=== PATIENT | male | born 1990 | race African-American/Black ===

== ENCOUNTER 2016-06-21 18:18 | Emergency (ER) | payer OTHER ==
[~2016-06-21] VITALS: Ht 185.4 cm; Wt 115.7 kg
[~2016-06-21 18:18] MED LIST: IBUP80TA PO; NAPR375T2 PO; TRAZ50TA2 PO; ULTR50TA PO; ZANA2CAP PO; ZOLO50TA PO
[2016-06-21] MEDS ORDERED: IBUP80TA PO (19:56)
[2016-06-21] MEDS ORDERED: NORCOTAB PO (19:56)
[2016-06-21] MEDS ORDERED: ROBA500T PO (19:56)
[2016-06-21] MEDS ORDERED: KETOROLAC 60 MG/2 ML VIAL (J1885) IM ONE (20:00)
[2016-06-21] MEDS ORDERED: METHOCARBAMOL 500 MG TAB PO ONE (20:00)
[2016-06-21 20:07] VITALS: BP 156/93
== END 2016-06-21 20:20 | disposition home or self-care (01) ==
LOC: M ED 19:24
DX: M54.41 Lumbago with sciatica, right side (principal); S39.012A Strain of muscle, fascia and tendon of lower back, initial encounter; X50.0XXA Overexertion from strenuous movement or load, initial encounter; Y92.018 Other place in single-family (private) house as the place of occurrence of the external cause; Y93.89 Activity, other specified; Y99.8 Other external cause status; F33.9 Major depressive disorder, recurrent, unspecified; G47.33 Obstructive sleep apnea (adult) (pediatric); Z79.899 Other long term (current) drug therapy
CPT/HCPCS: 96372; 99282; J1885

== ENCOUNTER → 2016-07-18 | Outpatient (CLI) | payer OTHER ==
[~2016-07-18] MED LIST changes: +NORCOTAB PO; +ROBA500T PO
--- NOTE | 2016-07-18 14:51 | REP ---
Chest two views HISTORY: Tuberculosis Comparison: 12/15/2013 The lungs are clear. The heart is normal in size. The pulmonary vasculature is normal in appearance. The bony structure is intact. IMPRESSION: No acute disease. Signed by Jaquan Krueger MD 07/18/2016 02:42 P
== END ==
LOC: M WUC 11:17
PROVIDERS: ATTEND Surgery
DX: Z11.1 Encounter for screening for respiratory tuberculosis (principal)

== ENCOUNTER → 2018-07-09 | Outpatient (REF) | payer OTHER ==
[~2018-07-09] MED LIST changes: +HYDR-3715 PO; -NORCOTAB PO
[2018-07-09 18:24] LABS: CHLAMYDIA DNA AMPLIFICATION NEGATIVE (NEGATIVE); GC DNA AMPLIFICATION POSITIVE (NEGATIVE)
== END ==
LOC: M LAB REF 16:10
PROVIDERS: ATTEND Physician Assistant
DX: R30.0 Dysuria (principal)

== ENCOUNTER 2018-07-20 09:16 | Emergency (ER) | payer OTHER ==
[~2018-07-20] VITALS: Ht 185.4 cm; Wt 120.7 kg
[2018-07-20] MEDS ORDERED: COLA100C5 PO (09:24)
[2018-07-20] MEDS ORDERED: ONDANSETRON 4MG/2ML VIAL (J2405) IV ONE (10:45)
[2018-07-20 10:57] LABS: HEMATOCRIT 49.1 % (42.0-52.0); HEMOGLOBIN 16.2 g/dl (13.5-17.5); MEAN CORPUSCULAR HEMOGLOBIN 28.6 pg (27.0-33.0); MEAN CORPUSCULAR VOLUME 86.7 fl (80.0-96.0); PLATELET COUNT, AUTOMATED 233 10^3/uL (150-450); RED BLOOD COUNT 5.66 10^6/uL (4.30-6.10); WHITE BLOOD COUNT 7.6 10^3/uL (4.0-10.0)
[2018-07-20] MEDS ORDERED: ISOVUE-370 76% 100ML VIAL (Q9967) As Ordered ONE (11:14)
--- NOTE | 2018-07-20 11:21 | REP ---
ABDOMEN, FLAT AND UPRIGHT AND PA CHEST, FOUR VIEWS: HISTORY: Rule out perforation. Air is present in small and large intestine. Several air fluid levels are present. There is no pneumoperitoneum. The lungs are clear. IMPRESSION: Nonspecific bowel gas pattern. Electronically Signed by Jaquan Krueger MD 07/20/2018 11:33 A
--- NOTE | 2018-07-20 12:12 | REP ---
CT abdomen pelvis with contrast History: Rule out obstruction Contrast: Isovue 370 75 ml The liver, gallbladder, pancreas, spleen, adrenal glands and kidneys are normal in appearance. There is no mass adenopathy or free fluid. The visualized lungs are clear. The prostate gland and urinary bladder are normal in appearance. A large quantity of stool is present in the distal sigmoid colon and rectum. The bony structure is intact. Impression: There is a large quantity of stool in the distal sigmoid colon and rectum. Electronically Signed by Jaquan Krueger MD 07/20/2018 12:03 P
[2018-07-20] MEDS ORDERED: BISACODYL 10 MG SUPP PR ONE (12:15)
[2018-07-20] MEDS ORDERED: MOM 30ML SUSPENSION UDC PO ONE (13:30)
[2018-07-20] MEDS ORDERED: FLEET ENEMA PR STA (14:21)
[2018-07-20 15:11] VITALS: BP 142/81
== END 2018-07-20 15:14 | disposition home or self-care (01) ==
LOC: M ED 09:16
DX: K59.00 Constipation, unspecified (principal); R11.0 Nausea; F17.210 Nicotine dependence, cigarettes, uncomplicated; Z79.899 Other long term (current) drug therapy
CPT/HCPCS: 36415; 74021; 74177; 80047; 83605; 85027; 96374; 99284; J2405; Q9967

== ENCOUNTER → 2019-01-24 | Outpatient (REF) | payer OTHER ==
[~2019-01-24] MED LIST changes: +COLA100C5 PO
[2019-01-24 21:54] LABS: CHLAMYDIA DNA AMPLIFICATION NEGATIVE (NEGATIVE); GC DNA AMPLIFICATION NEGATIVE (NEGATIVE)
== END ==
LOC: M LAB REF 11:56
PROVIDERS: ATTEND Physician Assistant
DX: Z20.2 Contact with and (suspected) exposure to infections with a predominantly sexual mode of transmission (principal)

== ENCOUNTER 2020-01-19 05:44 | Emergency (ER) | payer OTHER ==
[~2020-01-19] VITALS: Ht 185.4 cm; Wt 117.1 kg
[2020-01-19 05:46] VITALS: BP 158/101
[2020-01-19] MEDS ORDERED: [UNRECOGNIZED DRUG - CODE] TP (05:55)
[2020-01-19] MEDS ORDERED: IBUP-1022 PO (06:25)
[2020-01-19] MEDS ORDERED: PRED20TA PO (06:25)
[2020-01-19] MEDS ORDERED: predniSONE 20 MG TAB PO ONE (06:30)
[2020-01-19] MEDS ORDERED: IBUPROFEN 600MG TAB PO ONE (06:30)
== END 2020-01-19 06:45 | disposition home or self-care (01) ==
LOC: M ED 05:44
DX: M51.16 Intervertebral disc disorders with radiculopathy, lumbar region (principal); I10 Essential (primary) hypertension

== ENCOUNTER → 2021-08-26 | Outpatient (CLI) | payer OTHER ==
[~2021-08-26] MED LIST changes: +IBUP-1022 PO; +PRED20TA PO; +[UNRECOGNIZED DRUG - CODE] TP
== END ==
LOC: M WUC 11:44
DX: M25.561 Pain in right knee (principal)

== ENCOUNTER → 2021-09-01 | Outpatient (CLI) | payer OTHER, SELFPAY | LOC: M RAD 14:15 | PROVIDERS: ATTEND Physician Assistant | DX: M54.9 Dorsalgia, unspecified (principal) ==

== ENCOUNTER → 2024-01-07 | Outpatient (REF) | payer OTHER ==
[2024-01-07 12:02] LABS: SEMEN APPEARANCE OPAQUE (OPAQUE); SEMEN VISCOSITY LIQUID (LIQUID); SEMEN VOLUME 0.8 ml (2.0-5.0); SPERM CONCENTRATION 6.4 M/ml (>=15.0); WBC CONCENTRATION >1 M/ml (<=1 M/ml)
== END ==
LOC: M LAB REF 08:51
PROVIDERS: ATTEND Specialist
DX: N46.9 Male infertility, unspecified (principal)

== ENCOUNTER → 2024-01-28 | Outpatient (REF) | payer OTHER ==
[2024-01-28 10:36] LABS: SEMEN APPEARANCE OPAQUE (OPAQUE); SEMEN VISCOSITY LIQUID (LIQUID); SEMEN pH 8.5 (7.0-8.0); SPERM CONCENTRATION 41.7 M/ml (>=15.0); WBC CONCENTRATION >1 M/ml (<=1 M/ml)
== END ==
LOC: M LAB REF 09:23
PROVIDERS: ATTEND Specialist
DX: N46.9 Male infertility, unspecified (principal)